=== PATIENT | female | born 1965 | race Caucasian/White ===

== ENCOUNTER → 2017-02-04 | Outpatient (CLI) | payer OTHER ==
[~2017-02-04] MED LIST: IMDUR30 MG PO; LIPITOR20 M1 PO; LOPRESSOR25 MG PO; NITROSTAT0.4 MG SL; OCUVITE SOFTGE1 EACH PO; THERAGRAN-M1 TAB PO
[2017-02-04 15:31] LABS: ALBUMIN 3.5 gm/dL (3.5-5.0); TOTAL BILIRUBIN 1.2 mg/dL (0.0-1.5); TOTAL PROTEIN 7.2 g/dL (6.0-8.4)
== END | disposition disaster alternative care site (69) ==
LOC: LNHI 15:12
PROVIDERS: Internal Medicine Interventional Cardiology
DX: E78.5 Hyperlipidemia, unspecified (principal); R07.9 Chest pain, unspecified